=== PATIENT | male | born 1940 | race Caucasian/White ===

== ENCOUNTER → 2021-12-06 | Outpatient (CLI) | payer MEDICARE ==
[2021-12-06] MEDS: LEXISCAN IV ONE (11:49)
[2021-12-06 13:40] LABS: BASOPHIL % 0.5 % (0.0-0.2); EOSINOPHIL % 0.9 % (0.0-5.0); LYMPHOCYTES # 1.42 10^3/uL1 (1.0-4.8); LYMPHOCYTES % 32.6 % (24.0-44.0); MEAN CORP HGB 29.7 pg (26-34); MONOCYTES # 0.3 10^3/uL (0.3-0.8); MONOCYTES % 6.4 % (5.0-12.0); NEUTROPHIL # 2.6 10^3/uL (1.8-7.7); NEUTROPHILS % 59.6 % (41.0-85.0); PLATELET COUNT 203 10^3/uL (150-400)
--- NOTE | 2021-12-07 19:48 | OPH ---
DATE OF SURGERY: 12/06/2021 DICTATOR NAME: Rian Snyder MD LEXISCAN MYOCARDIAL PERFUSION SCAN IDENTIFICATION: A 81-year-old male. INDICATIONS: A 160 pounds, 5 feet 6 inches, 81-year-old with history of CAD, hypertension and post-stent angina, 3 stents in 2014 placed in [place], [place], dyspnea on exertion. Physical activity is limited. FINDINGS: 12-lead EKG: Regular sinus rhythm, LVH by voltage and PACs. Resting heart rate is 70. The patient, due to pandemic, was given Lexiscan 0.4 mg IV, followed by 33.8 mCi of Cardiolite and imaging was done 30-40 minutes later. Resting images were obtained with 10.74 mCi of Cardiolite. The patient tolerated the procedure well. He had mild dyspnea, sinus tachycardia, went up to 126, nonspecific ST-T wave changes on EKG. Myocardial perfusion images show mild LV dilatation with a TID of 1.18, but overall perfusion in the anterior wall, apex, septum, lateral wall, inferior and posterior wall appears to be fairly normal. No evidence of any provoked ischemia is documented. Prone images show fairly good perfusion globally. LV cavity contractility is normal with an ejection fraction of 70%. Hence, no evidence of any significant ischemic substrate based on perfusion images where abnormal TID is noted. PLAN: If the patient continues to have symptoms of angina, then consider a cardiac catheterization based on clinical symptomatology. In view of interview of fairly good perfusion, continue to optimize medical therapy and risk factor modification. MD NICOLAS Ricks/NAT TID: [id number] RECEIPT: [id number]
== END | disposition home or self-care (01) ==
LOC: RAD 10:30
PROVIDERS: ATTEND Specialist
DX: I10 Essential (primary) hypertension (principal); I25.10 Atherosclerotic heart disease of native coronary artery without angina pectoris; E55.9 Vitamin D deficiency, unspecified; E78.00 Pure hypercholesterolemia, unspecified; Z95.5 Presence of coronary angioplasty implant and graft
CPT/HCPCS: 36415; 78452; 80053; 80061; 82306; 84439; 84443; 85025; 86140; 93017; A9500; J2785; 84479